=== PATIENT | female | born 1950 | race Caucasian/White ===

== ENCOUNTER 2023-01-08 06:55 | Inpatient (IN) | payer MEDICARE ==
[2023-01-08] MEDS ORDERED: Ondansetron ODT 4 MG TAB PO PRN (07:58)
[2023-01-08] MEDS ORDERED: Senokot S 8.6-50 MG TAB PO PRN (07:58)
[2023-01-08] MEDS ORDERED: Ipratropium/Albuterol 3 ML NEB NEB SCH (10:30)
[2023-01-08] MEDS ORDERED: Nicotine 14 MG PATCH TD PRN (10:32)
[2023-01-08] MEDS ORDERED: Electrolyte Replacement Protocol 1 EACH FS SCH (10:45)
[2023-01-08] MEDS: Benzonatate 100 MG CAP PO PRN (11:43)
[2023-01-08] MEDS: HYDROcodone/Acetaminophen 5/325 mg Tablet PO PRN ×3 (11:43→21:37)
[2023-01-08] MEDS: Famotidine 20 MG TAB PO SCH ×2 (11:43→21:28)
[2023-01-08] MEDS: Ipratropium/Albuterol 3 ML NEB NEB SCH ×2 (12:36→20:30)
[2023-01-08] MEDS: methylPREDNISolone Sod Succ 40 MG VIAL IVP SCH ×2 (15:50→21:39)
[2023-01-08 20:11] VITALS: BMI 19.7
[2023-01-08] MEDS: Mometasone/Formoterol 200/5 60 PUFF INH SCH (20:54)
[2023-01-08] MEDS ORDERED: Gabapentin 300 MG CAP PO SCH (21:00)
[2023-01-08] MEDS ORDERED: Amitriptyline HCl 25 MG TAB PO SCH (21:00)
[2023-01-08] MEDS ORDERED: Amlodipine 5 MG TAB PO SCH (21:00)
[2023-01-08] MEDS: Atorvastatin Calcium 40 MG TAB PO SCH (21:28)
[2023-01-08] MEDS: Nystatin Powder 15 GM BOT TOP SCH (21:45)
[2023-01-09] MEDS: HYDROcodone/Acetaminophen 5/325 mg Tablet PO PRN (01:26)
[2023-01-09 01:47] LABS: Legionella Urinary Ag Negative (Negative); Strep pneumo Urine Ag NEGATIVE (NEGATIVE)
[2023-01-09] MEDS: Ipratropium/Albuterol 3 ML NEB NEB SCH ×4 (02:14→21:50)
[2023-01-09 05:02] LABS: Hemoglobin 12.2 g/dL (12.0-15.5); MDiff Complete? YES; Mean Corpuscular HGB CONC 30.7 g/dL (32.0-36.0); Mean Corpuscular Hemoglobin 26.6 pg (27.0-33.0); Mean Corpuscular Volume 86.7 fl (81.6-98.3); Mean Platelet Volume 10.1 fl (7.4-10.4); Platelet Count 400 10x3/uL (150-450); RBC Distribution Width 22.9 % (11.5-14.5); Red Blood Cell (RBC) Count 4.59 10x6/uL (3.90-5.03); White Blood Cell (WBC) Count 18.6 10x3/uL (3.5-10.5)
[2023-01-09 05:03] LABS: Anion Gap 15 mmol/L (10-20); BUN (Urea Nitrogen) 11 mg/dL (9.8-20.1); Calc. Creatinine Clearance 66 mL/min (70-130); Calcium 8.9 mg/dL (7.8-10.44); Carbon Dioxide 31 mmol/L (23-31); Chloride 99 mmol/L (98-107); Estimated GFR 94; Glucose 113 mg/dL (83-110); Sodium 139 mmol/L (136-145)
[2023-01-09] MEDS: methylPREDNISolone Sod Succ 40 MG VIAL IVP SCH ×4 (05:22→23:22)
[2023-01-09] MEDS: Levothyroxine Sodium 50 MCG TAB PO SCH (05:23)
[2023-01-09 05:38] LABS: Anisocytosis SLIGHT = 6-15 cells (100X) (0-5/hpf); Band 1 % (5-11); Hypochromia MODERATE=16-30 cells (100X) (0-5/hpf); Lymphocytes 2 % (21-51); Monocytes 2 % (0-10); Neutrophil 95 % (42-75); Polychromasia SLIGHT = 2-3 cells (100X) (0-2/hpf)
[2023-01-09] MEDS: Mometasone/Formoterol 200/5 60 PUFF INH SCH ×2 (08:00→23:24)
[2023-01-09] MEDS ORDERED: Mag-Al 1200 mg/1200 mg/30 ML UDCUP PO PRN (08:56)
[2023-01-09] MEDS ORDERED: Amlodipine 5 MG TAB PO SCH ×2 (09:00→11:00)
[2023-01-09] MEDS ORDERED: FLU VACC QS2022-23(65YR UP)/PF 240 MCG/0.7 ML SYRINGE IM ONE (09:00)
[2023-01-09] MEDS: Gabapentin 300 MG CAP PO SCH ×3 (09:27→20:27)
[2023-01-09] MEDS: Famotidine 20 MG TAB PO SCH ×2 (09:27→20:27)
[2023-01-09] MEDS: Lidocaine 5% Patch TD SCH (09:28)
[2023-01-09] MEDS: Nystatin Powder 15 GM BOT TOP SCH ×2 (09:28→21:05)
[2023-01-09] MEDS ORDERED: HYDROcodone/Acetaminophen 7.5/325 mg Tablet PO PRN (09:37)
[2023-01-09 11:47] LABS: Potassium 4.6 mmol/L (3.5-5.1)
[2023-01-09] MEDS: HYDROcodone/Acetaminophen 7.5/325 mg Tablet PO PRN ×3 (12:43→23:22)
[2023-01-09] MEDS: Atorvastatin Calcium 40 MG TAB PO SCH (20:27)
[2023-01-09] MEDS: Amitriptyline HCl 25 MG TAB PO SCH (21:04)
[2023-01-09] MEDS: Transdermal Patch Removal TOP SCH (21:05)
[2023-01-09] MEDS: Acetaminophen 325 MG TAB PO PRN (21:18)
[2023-01-10] MEDS: Ipratropium/Albuterol 3 ML NEB NEB SCH ×4 (01:30→20:30)
[2023-01-10 04:12] LABS: Hemoglobin 12.1 g/dL (12.0-15.5); Mean Corpuscular HGB CONC 31.7 g/dL (32.0-36.0); Mean Corpuscular Hemoglobin 26.9 pg (27.0-33.0); Mean Corpuscular Volume 84.9 fl (81.6-98.3); Mean Platelet Volume 9.6 fl (7.4-10.4); Platelet Count 368 10x3/uL (150-450); RBC Distribution Width 22.6 % (11.5-14.5); White Blood Cell (WBC) Count 16.3 10x3/uL (3.5-10.5)
[2023-01-10 04:14] LABS: Anion Gap 15 mmol/L (10-20); BUN (Urea Nitrogen) 13 mg/dL (9.8-20.1); Calc. Creatinine Clearance 75 mL/min (70-130); Calcium 8.5 mg/dL (7.8-10.44); Carbon Dioxide 28 mmol/L (23-31); Chloride 99 mmol/L (98-107); Estimated GFR 97; Glucose 101 mg/dL (83-110); Potassium 3.9 mmol/L (3.5-5.1); Sodium 138 mmol/L (136-145)
[2023-01-10 04:53] LABS: MDiff Complete? YES
[2023-01-10 05:02] LABS: Band 2 % (5-11); Lymphocytes 4 % (21-51); Neutrophil 94 % (42-75); Nucleated RBC 1 % (0)
[2023-01-10 05:04] LABS: Anisocytosis SLIGHT = 6-15 cells (100X) (0-5/hpf); Elliptocytes SLIGHT = 2-5 cells (100X) (0-1/hpf); Hypochromia SLIGHT = 6-15 cells (100X) (0-5/hpf); Microcytosis SLIGHT = 6-15 cells (100X) (0-5/hpf)
[2023-01-10 05:05] LABS: Platelet Morphology Comment Appears Adequate
[2023-01-10] MEDS: methylPREDNISolone Sod Succ 40 MG VIAL IVP SCH (05:31)
[2023-01-10] MEDS: Levothyroxine Sodium 50 MCG TAB PO SCH (05:31)
[2023-01-10] MEDS: HYDROcodone/Acetaminophen 7.5/325 mg Tablet PO PRN ×3 (05:35→17:30)
[2023-01-10] MEDS: Mometasone/Formoterol 200/5 60 PUFF INH SCH ×2 (06:42→20:30)
[2023-01-10] MEDS ORDERED: Amlodipine 5 MG TAB PO SCH (09:00)
[2023-01-10] MEDS: Gabapentin 300 MG CAP PO SCH ×3 (09:26→20:36)
[2023-01-10] MEDS: Amlodipine 10 MG TAB PO SCH (09:26)
[2023-01-10] MEDS: Famotidine 20 MG TAB PO SCH ×2 (09:26→20:36)
[2023-01-10] MEDS: Benzonatate 100 MG CAP PO PRN (09:26)
[2023-01-10] MEDS: Lidocaine 5% Patch TD SCH (09:27)
[2023-01-10] MEDS: Nystatin Powder 15 GM BOT TOP SCH ×2 (09:27→20:37)
[2023-01-10] MEDS: Amitriptyline HCl 25 MG TAB PO SCH (20:36)
[2023-01-10] MEDS: Atorvastatin Calcium 40 MG TAB PO SCH (20:36)
[2023-01-10] MEDS: Transdermal Patch Removal TOP SCH (20:40)
[2023-01-11] MEDS: HYDROcodone/Acetaminophen 7.5/325 mg Tablet PO PRN ×5 (00:05→22:14)
[2023-01-11] MEDS: Ipratropium/Albuterol 3 ML NEB NEB SCH ×4 (01:00→20:45)
[2023-01-11] MEDS: Levothyroxine Sodium 50 MCG TAB PO SCH (05:32)
[2023-01-11] MEDS: Mometasone/Formoterol 200/5 60 PUFF INH SCH ×2 (07:25→20:45)
[2023-01-11] MEDS: predniSONE 5 MG TAB PO SCH (10:47)
[2023-01-11] MEDS: Lidocaine 5% Patch TD SCH (10:48)
[2023-01-11] MEDS: Nystatin Powder 15 GM BOT TOP SCH ×2 (10:48→20:41)
[2023-01-11] MEDS: Famotidine 20 MG TAB PO SCH ×2 (10:48→20:42)
[2023-01-11] MEDS: Amlodipine 10 MG TAB PO SCH (10:48)
[2023-01-11] MEDS: Gabapentin 300 MG CAP PO SCH ×3 (10:48→20:42)
[2023-01-11] MEDS: Amitriptyline HCl 25 MG TAB PO SCH (20:41)
[2023-01-11] MEDS: Atorvastatin Calcium 40 MG TAB PO SCH (20:42)
[2023-01-11] MEDS: Transdermal Patch Removal TOP SCH (22:13)
[2023-01-12] MEDS: Ipratropium/Albuterol 3 ML NEB NEB SCH ×2 (01:00→09:15)
[2023-01-12] MEDS: HYDROcodone/Acetaminophen 7.5/325 mg Tablet PO PRN ×2 (03:12→09:11)
[2023-01-12] MEDS: Levothyroxine Sodium 50 MCG TAB PO SCH (05:41)
[2023-01-12] MEDS: predniSONE 5 MG TAB PO SCH (08:29)
[2023-01-12] MEDS: Amlodipine 10 MG TAB PO SCH (08:29)
[2023-01-12] MEDS: Gabapentin 300 MG CAP PO SCH (08:29)
[2023-01-12] MEDS: Famotidine 20 MG TAB PO SCH (08:29)
[2023-01-12] MEDS: Lidocaine 5% Patch TD SCH (08:29)
[2023-01-12] MEDS: Acetaminophen 325 MG TAB PO PRN (08:29)
[2023-01-12] MEDS: Nystatin Powder 15 GM BOT TOP SCH (08:30)
[2023-01-12] MEDS: Mometasone/Formoterol 200/5 60 PUFF INH SCH (08:45)
[2023-01-12 13:20] VITALS: BP 111/70; TEMP 97.1
== END 2023-01-12 13:29 | disposition home or self-care (01) | DRG 189 ==
LOC: CSHTELE 06:55
PROVIDERS: ADMIT Family Medicine; ATTEND Internal Medicine
DX: J96.21 Acute and chronic respiratory failure with hypoxia (principal); J44.1 Chronic obstructive pulmonary disease with (acute) exacerbation; G51.0 Bell's palsy; M10.9 Gout, unspecified; Z20.822 Contact with and (suspected) exposure to COVID-19; I10 Essential (primary) hypertension; E03.9 Hypothyroidism, unspecified; F32.A Depression, unspecified; F17.210 Nicotine dependence, cigarettes, uncomplicated; G89.29 Other chronic pain; E78.2 Mixed hyperlipidemia; Z88.0 Allergy status to penicillin; Z88.2 Allergy status to sulfonamides; Z79.899 Other long term (current) drug therapy; Z79.51 Long term (current) use of inhaled steroids; Z99.81 Dependence on supplemental oxygen; I25.2 Old myocardial infarction; Z98.890 Other specified postprocedural states; Z90.710 Acquired absence of both cervix and uterus; Z90.49 Acquired absence of other specified parts of digestive tract
CPT/HCPCS: 36415; 80048; 85025; 87449; 87899; 94640; 94760; 94799; J1650; J1956; J2920; J7512; J7620